=== PATIENT | female | born 1975 | race African-American/Black ===

== ENCOUNTER 2018-06-18 07:11 | Emergency (ER) | payer SELFPAY ==
[~2018-06-18] VITALS: Ht 165.1 cm; Wt 60.0 kg
[~2018-06-18 07:11] MED LIST: TRAM50TA3 PO
[2018-06-18] MEDS ORDERED: KETOROLAC 60MG/2ML VIAL IM STA (08:26)
[2018-06-18] MEDS ORDERED: LORAZEPAM 1MG TABLET PO ONE (08:30)
[2018-06-18 08:45] LABS: BASOPHILS % 0.9 % (0.0-2.0); EOSINOPHILS % 1.9 % (0.0-5.0); HEMATOCRIT. 39.5 % (36.0-48.0); HEMOGLOBIN. 13.4 g/dL (12.0-16.0); LYMPHOCYTES % 32.3 % (20.0-50.0); MEAN CORPUSCULAR HEMOGLOBIN 32.2 pg (28.0-32.0); MEAN CORPUSCULAR VOLUME 95.2 fL (81.0-99.0); MEAN PLATELET VOLUME 9.2 fl (7.4-10.4); MONOCYTES % 5.9 % (2.0-8.0); PLATELET 223 x1000/uL (130-400); RED BLOOD CELL COUNT 4.14 mill/uL (4.2-5.4); RED CELL DISTRIBUTION WIDTH 12.5 % (11.6-14.6)
[2018-06-18 08:46] LABS: *AMPHETAMINES SCREEN URINE NEGATIVE (NEGATIVE); *BARBITURATES SCREEN URINE NEGATIVE (NEGATIVE); *BENZODIAZEPINES SCREEN URINE NEGATIVE (NEGATIVE); *COCAINE SCREEN URINE NEGATIVE (NEGATIVE)
[2018-06-18 08:47] LABS: METHADONE URINE SCREEN NEGATIVE (NEGATIVE)
[2018-06-18 08:48] LABS: PHENCYCLIDINE URINE SCREEN NEGATIVE (NEGATIVE)
[2018-06-18 08:51] LABS: CLARITY URINE CLEAR (CLEAR); COLOR URINE YELLOW (YELLOW); KETONES URINE NEGATIVE (NEGATIVE); LEUKOCYTE ESTERASE URINE NEGATIVE (NEGATIVE); NITRITE URINE NEGATIVE (NEGATIVE); OCCULT BLOOD URINE NEGATIVE (NEGATIVE); PH URINE 7.5 (4.5-8.0); PROTEIN URINE NEGATIVE (NEGATIVE); SPECIFIC GRAVITY URINE 1.006 (1.005-1.030); UROBILINOGEN URINE 0.2 E.U./dL (0.2-1.0)
[2018-06-18 08:51] LABS: CHLORIDE 108 mEq/L (98-107)
[2018-06-18 08:53] LABS: PROTHROMBIN TIME 10.2 sec (9.6-11.0)
[2018-06-18 09:05] LABS: CANNABINOID URINE SCREEN PRESUMTIVE POSITIVE (NEGATIVE); OPIATES URINE SCREEN PRESUMTIVE POSITIVE (NEGATIVE)
[2018-06-18] MEDS ORDERED: MORPHINE SULFATE 10 MG/ML CPJ IM ONE (09:45)
[2018-06-18] MEDS ORDERED: ONDANSETRON 4MG ODT PO ONE (09:45)
[2018-06-18 12:29] VITALS: BP 104/63
== END 2018-06-18 12:34 | disposition home or self-care (01) ==
LOC: ER 07:11
DX: M54.5 Low back pain (principal); F41.9 Anxiety disorder, unspecified; F12.10 Cannabis abuse, uncomplicated; F11.10 Opioid abuse, uncomplicated; Z90.710 Acquired absence of both cervix and uterus; Z87.19 Personal history of other diseases of the digestive system
CPT/HCPCS: 36415; 80053; 80305; 81003; 81025; 83690; 85025; 85610; 96372; 99283; J1885; J2270; Q0162

== ENCOUNTER 2019-08-28 12:04 | Emergency (ER) | payer SELFPAY ==
[~2019-08-28] VITALS: Ht 167.6 cm; Wt 59.0 kg
[2019-08-28] MEDS ORDERED: ZOFRAN (12:09)
[2019-08-28] MEDS ORDERED: ONDANSETRON HCL 4MG/2ML INJ IV STA (13:26)
[2019-08-28] MEDS ORDERED: KETOROLAC 30MG/ML VIAL IV STA (13:26)
[2019-08-28 13:54] LABS: BASOPHILS % 0.3 % (0.0-2.0); EOSINOPHILS % 0.1 % (0.0-5.0); HEMATOCRIT. 40.5 % (36.0-48.0); LYMPHOCYTES % 11.4 % (20.0-50.0); MEAN CORPUSCULAR HEMOGLOBIN 33.7 pg (28.0-32.0); MEAN CORPUSCULAR VOLUME 97.5 fL (81.0-99.0); MEAN PLATELET VOLUME 10.4 fl (7.4-10.4); MONOCYTES % 2.1 % (2.0-8.0); NEUTROPHILS % 86.1 % (40.0-76.0); PLATELET 205 x1000/uL (130-400); RED BLOOD CELL COUNT 4.16 mill/uL (4.2-5.4); RED CELL DISTRIBUTION WIDTH 12.8 % (11.6-14.6)
[2019-08-28 13:58] LABS: CHLORIDE 107 mEq/L (98-107)
[2019-08-28 14:03] LABS: INR 0.9; PROTHROMBIN TIME 10.2 sec (9.6-11.0)
[2019-08-28] MEDS ORDERED: MORPHINE SULFATE 2 MG/ML CPJ (NOT FOR IM USE) IV ONE (14:15)
[2019-08-28 14:24] LABS: CLARITY URINE CLEAR (CLEAR); COLOR URINE YELLOW (YELLOW); KETONES URINE 2+ (NEGATIVE); LEUKOCYTE ESTERASE URINE NEGATIVE (NEGATIVE); NITRITE URINE NEGATIVE (NEGATIVE); OCCULT BLOOD URINE 2+ (NEGATIVE); PROTEIN URINE NEGATIVE (NEGATIVE); SPECIFIC GRAVITY URINE 1.018 (1.005-1.030); UROBILINOGEN URINE 0.2 E.U./dL (0.2-1.0)
[2019-08-28] MEDS ORDERED: POTASSIUM CHLORIDE 20MEQ TABLET SR PO NR (15:00)
[2019-08-28 17:59] VITALS: BP 128/80
== END 2019-08-28 18:09 | disposition home or self-care (01) ==
LOC: ER 12:04
DX: R10.33 Periumbilical pain (principal); N83.201 Unspecified ovarian cyst, right side; Z90.710 Acquired absence of both cervix and uterus; Z87.19 Personal history of other diseases of the digestive system
CPT/HCPCS: 36415; 74177; 76705; 76830; 76856; 80053; 81003; 81025; 83690; 85025; 85610; 96374; 96375; 99285; J1885; J2270; J2405

== ENCOUNTER 2020-03-15 10:55 | Emergency (ER) | payer SELFPAY ==
[~2020-03-15] VITALS: Ht 167.6 cm; Wt 66.0 kg
[~2020-03-15 10:55] MED LIST changes: -TRAM50TA3 PO; +ZOFRAN
[2020-03-15 12:02] LABS: *AMPHETAMINES SCREEN URINE NEGATIVE (NEGATIVE); *BARBITURATES SCREEN URINE NEGATIVE (NEGATIVE); *BENZODIAZEPINES SCREEN URINE NEGATIVE (NEGATIVE); *COCAINE SCREEN URINE NEGATIVE (NEGATIVE)
[2020-03-15 12:04] LABS: METHADONE URINE SCREEN NEGATIVE (NEGATIVE); OPIATES URINE SCREEN NEGATIVE (NEGATIVE); PHENCYCLIDINE URINE SCREEN NEGATIVE (NEGATIVE)
[2020-03-15 12:11] LABS: CANNABINOID URINE SCREEN PRESUMTIVE POSITIVE (NEGATIVE)
[2020-03-15 12:59] LABS: HCG SCREEN NEGATIVE
[2020-03-15] MEDS ORDERED: TRAMADOL 50MG TABLET PO ONE (13:00)
[2020-03-15] MEDS ORDERED: TETANUS, DIPHTHERIA, PERTUSSIS VAC/PF 0.5ML (>7YR OLD) IM ONE (13:45)
[2020-03-15] MEDS ORDERED: ONDANSETRON 4MG ODT PO ONE (14:15)
[2020-03-15 14:25] VITALS: BP 145/78
[2020-03-15] MEDS ORDERED: IBUPROFEN 400MG TABLET PO ONE (14:30)
== END 2020-03-15 14:50 | disposition home or self-care (01) ==
LOC: ER 11:34
DX: F10.129 Alcohol abuse with intoxication, unspecified (principal); S00.12XA Contusion of left eyelid and periocular area, initial encounter; S00.11XA Contusion of right eyelid and periocular area, initial encounter; Y90.4 Blood alcohol level of 80-99 mg/100 ml; Y04.0XXA Assault by unarmed brawl or fight, initial encounter; Y93.89 Activity, other specified; Y92.89 Other specified places as the place of occurrence of the external cause; Y99.8 Other external cause status
CPT/HCPCS: 36415; 70450; 70486; 80305; 80320; 81025; 84703; 90471; 90715; 99285; Q0162; Z7610; G0480